=== PATIENT | male | born 1955 | race Caucasian/White ===

== ENCOUNTER → 2020-10-19 | Outpatient (CLI) | payer SELFPAY ==
[~2020-10-19] MED LIST: COVID-19 VACCINE (PFIZER)/PF 30 MCG/0.3 ML VIAL IM ONE; EPINEPHRINE INJ/PF 1 MG/1 ML AMPULE IM PRN
== END ==
LOC: EMPHEALTH 11:40
PROVIDERS: ATTEND Internal Medicine
DX: Z23 Encounter for immunization (principal)
CPT/HCPCS: 91300

== ENCOUNTER → 2020-11-09 | Outpatient (CLI) | payer MEDICARE, BC | LOC: EMPHEALTH 11:43 | PROVIDERS: ATTEND Internal Medicine | DX: Z23 Encounter for immunization (principal) | CPT/HCPCS: 91300 ==